=== PATIENT | male | born 1955 | race Caucasian/White ===

== ENCOUNTER → 2017-10-13 09:48 | Outpatient (CLI) | payer OTHER, SELFPAY ==
[2017-10-13 12:27] LABS: Anion Gap 5 (5-15); BUN 14 mg/dL (7-18); BUN/Creat Ratio 14.8 RATIO (10-20); Calcium,Total 8.3 mg/dL (8.5-10.1); Chloride 110 mmol/L (98-107); Cholesterol 201 mg/dL (200); Creatinine, Serum 0.95 mg/dL (0.70-1.30); EST Glomerular Filtration Rate 86 mL/min (>60); Est Glom Filt Rate - Afr Amer 104 mL/min (>60); Glucose 87 mg/dL (74-106); High Density Lipoprotein 44 mg/dL; PSA,Total - Annual Screen 0.91 ng/mL (0.00-4.00); Sodium Level 142 mmol/L (136-145); Triglycerides 60 mg/dL; Very Low Density Lipoprotein 12 mg/dL (5-40)
== END ==
PROVIDERS: Family Provider Family Medicine; PCP Family Medicine; Visit Provider Family Medicine
DX: E78.5 Hyperlipidemia, unspecified (principal); Z12.5 Encounter for screening for malignant neoplasm of prostate; Z13.1 Encounter for screening for diabetes mellitus
CPT/HCPCS: 36415; 80048; 80061; 84153; G0103

== ENCOUNTER → 2018-05-16 08:40 | Outpatient (CLI) | payer OTHER, SELFPAY ==
--- NOTE | 2018-05-16 08:42 | RAD_ITS ---
STUDY: X-RAY - PELVIS AND LEFT HIP REASON FOR EXAM: Male, 62 years old. Pain TECHNIQUE: Radiological exam, hip, unilateral, with pelvis when performed; 2 or 3 views. COMPARISON: None. FINDINGS: There is a non-specific bowel gas pattern. Normal visualized soft tissue structures. Normal bilateral iliac wings, sacroiliac joints and visualized sacrum. Normal bilateral superior and inferior pubic rami. Normal pubic symphysis. Normal bilateral ischial tuberosities. Normal visualized femoral head. Normal acetabulum. There is mild articular joint space narrowing of the hip. RAD/HIP, UNI W/ Pelvis 2-3 Views IMPRESSION: There is mild degenerative arthrosis of the LEFT hip. There are NO fractures or malalignments. Electronically Signed: Jeramie Gao MD at 2:28 EDT , Service support ,
== END ==
PROVIDERS: Family Provider Family Medicine; PCP Family Medicine; Referring Provider Physician Assistant; Visit Provider Physician Assistant
DX: M25.552 Pain in left hip (principal)
CPT/HCPCS: 73502

== ENCOUNTER 2018-06-09 07:23 | Outpatient (RCR) | payer OTHER, SELFPAY ==
--- NOTE | 2018-06-09 08:20 | HP.PTEVAL_ITS ---
Patient's Visit Information AYUSH LEE is a 62 year old M referred to Physical Therapy by JAYLEN Purcell with a diagnosis of L ITB syndrome. Date of Evaluation: 06/09/18 Physical Therapist: Dustin James DPT, OC - Visit Plan Frequency: 1x/Week Duration: 2-4 Weeks Plan: shown stretches today and will f/.u two weeks to ensure progress and D//C unless pain worsen and he is to call. - Subjective Subjective: Thought I was having a cramp last Tuesday and hard to walk the next day. Cramp was on top of R quad during tennis. Hard to walk due to pain the next morning and felt like it would pop out on him again. Almost back to normal. But has not played tennis. Has been taking it easy on the peloton which seemed to help. No tennis since. Just avoiding quick movements. Also taking animal chores slowly cleaning stalls and throwing hay. 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 Long trips have given him R posterior lateral leg pain. That happens on his commute now. Sleep is OK. Was seeing [facility] for L hip pain and clicking and is 70% with rest from the peloton. That pain was L lateral hip. - Pain R lateral knee Pain Intensity (Out of 10): 0 Pain Intensity Range: 1, 7 L hip pain Pain Intensity (Out of 10): 2 Pain Intensity Range: 2, 8 - Objective Pt ambulates adn performs steps normal today and without pain. No tenderness palpable in either LE. R knee has slight fat pad lump laterally whcih pt says has always been there. Full aROM knees and ankles and 5/5 strength. Hips are tight in musculature but good ROM except hip flexion whcih is 5 degrees actively B. quad and HS and ITB are mod tight, piriformis min tight. B. reflexes 2/3 patella adn achilles. Sensation LE WNL to gross light touch. - B FADDIR adn COLE, - B hip scour, - R patellar grind, bounce home. - Goals Goal 1:: I approp stretches t o minimize future problems Goal Time Frame: 2-4 Weeks Goal 2:: Pt feel 95% back to normal and doing all acitviites on farm and tennis. Goal Time Frame: 4-6 Weeks - Rehabilitation Potential Physical Therapy Diagnosis: L ITB syndrome , tight but improving pain. Rehabilitation Potential: Good - Anticipated Interventions Patient/Client Instruction: Educate patient on: Condition, Plan of Care For the Purpose of:: To decrease pain, To improve nutrient delivery to tissue, To improve ability of physical actions for home/community/work/leisure Therapeutic Exercise to Include: Flexibilty training For the Purpose of:: To decrease pain, To increase ROM Thank you for the opportunity to evaluate your patient. For Medicare and Medicare HMO plans, please review the plan of care and approve it. It will need to be FAXED BACK to us at [phone] for Medicare purposes. Please let me know if there are questions or concerns regarding this plan of care. Physician Signature: Date:
--- NOTE | 2018-08-18 13:43 | HP.PT.NRP ---
HP - Discharge Summary (1) - Patient Information AYUSH LEE was seen in my office for initial evaluation on 06/09/18. The following Plan of Care was established for this patient: Initial Frequency: 1x/Week Initial Duration: 2-4 Weeks - Anticipated Interventions Patient/Client Instruction: Educate patient on: Condition, Plan of Care For the Purpose of:: To decrease pain, To improve nutrient delivery to tissue, To improve ability of physical actions for home/community/work/leisure Therapeutic Exercise to Include: Flexibilty training For the Purpose of:: To decrease pain, To increase ROM This patient was last seen in our office 06/09/18. Pertinent comments regarding their Physical therapy will appear below: pt seen for one visit and POC established. Pt cancelled subsequent visits withotu rescheduling. AT this point, it has been over two months and will discontinue due to non attendance. At this point I will be discontinuing this patient from physical therapy. I would be happy to see this patient again in the future if found appropriate by the physician. Thank you! Dustin James, DPT, OCS, CSCS
== END 2018-06-09 19:00 | disposition home or self-care (01) ==
LOC: PT 07:23
PROVIDERS: Family Provider Family Medicine; PCP Family Medicine; Referring Provider Physician Assistant; Visit Provider Physician Assistant
DX: M76.32 Iliotibial band syndrome, left leg (principal)
CPT/HCPCS: 97110; 97161

== ENCOUNTER → 2018-07-17 08:16 | Outpatient (CLI) | payer OTHER, SELFPAY ==
--- NOTE | 2018-07-17 08:17 | RAD_ITS ---
STUDY: X-RAY - RIGHT KNEE REASON FOR EXAM: Pain. TECHNIQUE: 4 view(s) of the knee. COMPARISON: None. FINDINGS: There are postoperative changes of the distal femur and proximal tibia from anterior cruciate ligament reconstruction. Normal proximal tibiofibular articulation. Normal medial femorotibial compartment. There is a small surface osteophyte of the lateral femoral condyle on the tunnel view without joint space narrowing of the lateral femorotibial compartment. There are minimal marginal osteophytes of the patella without joint space narrowing of the patellofemoral articulation. There is a joint effusion. RAD/Knee 4 or More Views IMPRESSION: Joint effusion. Postoperative changes from anterior cruciate ligament reconstruction. Electronically Signed: Virgil Gordon MD at 11:55 EST Tel , Service support ,
== END ==
PROVIDERS: Family Provider Family Medicine; PCP Family Medicine; Referring Provider Orthopaedic Surgery; Visit Provider Orthopaedic Surgery
DX: M25.561 Pain in right knee (principal)
CPT/HCPCS: 73564

== ENCOUNTER → 2018-12-11 | Outpatient (CLI) | payer OTHER, SELFPAY ==
[2018-12-11 11:23] LABS: Anion Gap 7 (5-15); BUN 18 mg/dL (7-18); BUN/Creat Ratio 17.3 RATIO (10-20); Calcium,Total 8.7 mg/dL (8.5-10.1); Chloride 109 mmol/L (98-107); Cholesterol 200 mg/dL (200); Creatinine, Serum 1.04 mg/dL (0.70-1.30); EST Glomerular Filtration Rate 77 mL/min (>60); Est Glom Filt Rate - Afr Amer 93 mL/min (>60); Glucose 96 mg/dL (74-106); High Density Lipoprotein 46 mg/dL; PSA,Total - Annual Screen 1.11 ng/mL (0.00-4.00); Potassium 4.1 mmol/L (3.5-5.1); Sodium Level 143 mmol/L (136-145); Triglycerides 86 mg/dL; Very Low Density Lipoprotein 17 mg/dL (5-40)
== END | disposition home or self-care (01) ==
LOC: MFPLAB 08:53
PROVIDERS: Family Provider Family Medicine; PCP Family Medicine; Referring Provider Family Medicine; Visit Provider Family Medicine
DX: R73.01 Impaired fasting glucose (principal); Z12.5 Encounter for screening for malignant neoplasm of prostate
CPT/HCPCS: 36415; 80048; 80061; 84153; G0103

== ENCOUNTER → 2019-05-10 | Outpatient (CLI) | payer OTHER, SELFPAY ==
--- NOTE | 2019-05-10 08:50 | RAD_ITS ---
STUDY: X-RAY - PELVIS AND LEFT HIP REASON FOR EXAM: Male, 63 years old. Pain TECHNIQUE: 2 views of the pelvis and hip. COMPARISON: 05/16/2018 FINDINGS: There is a non-specific bowel gas pattern. Pelvic phlebolith on the left. Normal bilateral iliac wings, sacroiliac joints and visualized sacrum. Normal bilateral superior and inferior pubic rami. Normal pubic symphysis. Normal bilateral ischial tuberosities. Mild bilateral hip osteoarthritis. RAD/HIP, UNI W/ Pelvis 2-3 Views IMPRESSION: Mild bilateral hip osteoarthritis. This is unchanged. Electronically Signed: Kenyon Washington MD at 17:07 EDT Tel , Service support ,
== END | disposition home or self-care (01) ==
LOC: HPRAD 08:28
PROVIDERS: Family Provider Family Medicine; PCP Family Medicine; Referring Provider Family Medicine; Visit Provider Family Medicine
DX: M25.552 Pain in left hip (principal)
CPT/HCPCS: 73502

== ENCOUNTER → 2020-12-23 09:18 | Outpatient (CLI) | payer OTHER, SELFPAY ==
[2020-10-09 08:07] VITALS: BMI 29.0
[2020-12-23 10:42] LABS: Anion Gap 4 (5-15); BUN 15 mg/dL (7-18); BUN/Creat Ratio 17.5 RATIO (10-20); Calcium,Total 8.7 mg/dL (8.5-10.1); Chloride 110 mmol/L (98-107); Cholesterol 204 mg/dL (200); Creatinine, Serum 0.86 mg/dL (0.70-1.30); EST Glomerular Filtration Rate 96 mL/min (>60); Est Glom Filt Rate - Afr Amer 116 mL/min (>60); Glucose 92 mg/dL (74-106); High Density Lipoprotein 45 mg/dL; PSA,Total- Diagnostic 1.07 ng/mL (0.0-4.0); Sodium Level 141 mmol/L (136-145); Triglycerides 85 mg/dL; Very Low Density Lipoprotein 17 mg/dL (5-40)
== END ==
PROVIDERS: PCP Family Medicine; Referring Provider Family Medicine; Visit Provider Family Medicine
DX: Z13.220 Encounter for screening for lipoid disorders (principal); Z13.1 Encounter for screening for diabetes mellitus; Z12.5 Encounter for screening for malignant neoplasm of prostate
CPT/HCPCS: 36415; 80048; 80061; 84153

== ENCOUNTER 2023-04-18 16:27 | Emergency (ER) | payer OTHER, SELFPAY ==
[2023-04-18 16:28] VITALS: BP 150/84; PULSE 61; RESP 18; TEMP 36.3; O2SAT 100; BMI 30.4
--- NOTE | 2023-04-18 18:34 | CT_ITS ---
EXAM: CT brain without IV contrast. HISTORY: vision changes TECHNIQUE: No intravenous contrast. A radiation dose optimization technique was used for this scan. COMPARISON: None. LIMITATIONS: None. BRAIN: Mild low attenuation bilaterally within the deep white matter, likely secondary to chronic microvascular ischemia. VENTRICLES: No hydrocephalus. EXTRA-AXIAL SPACES: No acute hemorrhage. CALVARIUM/SKULL BASE: No acute fracture. FACE/SINUSES: Mucous retention cysts or polyps in the maxillary sinuses bilaterally. SOFT TISSUES: Normal. OTHER: None. CONCLUSION: No acute intracranial abnormality. EXAM: CT angiogram brain. HISTORY: vision changes TECHNIQUE: CTA Head and Neck W/ Contrast Injection (and W/O Contrast Images if performed). Multiplanar reconstructions and 3-D reformats were obtained. A radiation dose optimization technique was used for this scan. COMPARISON: None. LIMITATIONS: Mild motion artifact. DISTAL CAROTID ARTERIES: No significant stenosis. ANTERIOR CEREBRAL ARTERIES: No significant stenosis. MIDDLE CEREBRAL ARTERIES: No significant stenosis. POSTERIOR CEREBRAL ARTERIES: No significant stenosis. BASILAR ARTERY: No significant stenosis. OTHER: None. CONCLUSION: No aneurysm or significant stenosis. EXAM: CT angiogram neck. HISTORY: vision changes TECHNIQUE: CTA Head and Neck W/ Contrast Injection (and W/O Contrast Images if performed). Multiplanar reconstructions and 3-D reformats were obtained. A radiation dose optimization technique was used for this scan. COMPARISON: None. LIMITATIONS: None. CAROTID ARTERIES: No significant stenosis. VERTEBRAL ARTERIES: No significant stenosis. BONES/SOFT TISSUES: No acute fracture. OTHER: None. CONCLUSION: No significant stenosis. Electronically Signed: Roberto Pace MD at 20:23 EDT , CT/CTA Head AND Neck W/ Contrast IMPRESSION: undefined
--- NOTE | 2023-04-18 18:35 | EKG12_ITS ---
Test Reason : DYSRHYTHMIA Blood Pressure : / mmHG Vent. Rate : 054 BPM Atrial Rate : 054 BPM P-R Int : 196 ms QRS Dur : 090 ms QT Int : 378 ms P-R-T Axes : 032 008 006 degrees QTc Int : 358 ms Sinus bradycardia Otherwise normal ECG Confirmed by ROSA COCHRAN, KAREN ([id number]), television news video editor BERTA WILSON ([id number]) on 04/21/2023 1:58:21 PM Referred By: Confirmed By:KAREN LEE MD
--- NOTE | 2023-04-18 18:36 | EX.ED.VIS.EY ---
HPI History of Present Illness Chief Complaint: Eye Problem Informant: patient Narrative Narrative: Patient presents from ophthalmology office due to concern for stroke. Patient was being seen for amaurosis fugax. About 4-6 months ago he had to episodes of wavy vision in the lower portion of his right eye only. About 2 weeks ago he had an episode of completely opaque vision blockage in the lower portion of his right eye that lasted just a few seconds. He was being seen today for follow-up. Apparently his sed rate and CRP have been negative in the past. Due to concern for stroke he was sent to the emergency room for work-up. [facility] Medical History (Updated 04/18/23 @ 21:[address] Bianca Carty MD) High cholesterol Home Medications rosuvastatin 10 mg tablet (Crestor) 10 mg PO DAILY 04/18/23 [History Last Taken Unknown] Allergy/AdvReac Type Severity Reaction Status Date / Time No Known Allergies Allergy Verified 04/18/23 16:30 Surgical History H/O knee surgery History of total hip replacement Social History household members: spouse housing: house current occupational status: employed Smoking Status: Never smoker alcohol intake: current alcohol intake frequency: a few times a week what type of physical activity do you participate in: bicycling do you feel safe at home: Yes ROS ROS ED Constitutional Constitutional ED: Denies chills or fever(s) Eyes Eyes: Reports change in vision; Denies discharge from eye(s) ENT ENT ED: Denies discharge from eye(s), rhinorrhea or sore throat Cardiovascular Cardiovascular: Denies chest pain or palpitations Respiratory/Chest Respiratory/Chest: Denies cough or dyspnea Gastrointestinal Gastrointestinal: Denies abdominal pain, nausea or vomiting Genitourinary Genitourinary ED: Denies dysuria Musculoskeletal Musculoskeletal: Denies back pain or extremity pain Integumentary Denies Abrasions or rash Neurologic Neurologic: Denies headache(s) or weakness Psychiatric Psychiatric: Denies anxiety or depression Allergic/Immunologic Allergic/Immunologic ED: Denies lip swelling or urticaria EXAM Physical Exam Const Vital Signs: 04/18/23 16:28 Temperature 97.4 F L Temperature Source Temporal Pulse Rate 61 Respiratory Rate 18 Blood Pressure 150/84 H Blood Pressure Mean 106 Pulse Ox 100 Oxygen Delivery Method Room Air Positive well nourished and well developed General Appearance ED: well developed HEENT Reports normocephalic and head/scalp atraumatic Eyes PERRL and EOMs intact bilaterally Neck supple Chest Wall inspection of chest normal and palpation of chest normal Resp normal respiratory effort and clear to auscultation bilaterally Cardio regular rate and regular rhythm GI normal to inspection, nondistended, normoactive bowel sounds Palpation: soft Back/Spine no CVA tenderness Extremity normal to inspection Neuro oriented x3 and no sensory deficits noted Neuro Narrative: NIH equals 0 Sensorium / Orientation: alert Motor Exam: strength 5/5 throughout Psych mental status grossly normal MDM MDM MDM Narrative Medical decision making narrative: Patient placed on fudger. EKG obtained to evaluate for cardiac arrhythmia/ischemia. Chest x-ray obtained to evaluate for acute lung pathology, cardiac size, or mediastinal abnormality. Labwork obtained to evaluate for leukocytosis, anemia, and electrolyte derangement. CTA of the head and neck obtained to evaluate for stroke. Lab Data Attestation: I reviewed the patient's lab results. Labs: Laboratory Results 04/18/23 18:45 WBC 5.0 RBC 4.52 L Hgb 14.0 Hct 43.1 MCV 95.4 H MCH 31.0 MCHC 32.5 RDW Std Deviation 43.4 RDW Coeff of Alyssia 12.4 Plt Count 151 MPV 9.0 Immature Gran % (Auto) 0.400 Neut % (Auto) 56.6 Lymph % (Auto) 31.7 Shackelford % (Auto) 7.5 Eos % (Auto) 3.0 Baso % (Auto) 0.8 Absolute Neuts (auto) 2.8 Absolute Lymphs (auto) 1.57 Nucleated RBC % 0 ESR 3 PT 12.3 INR 0.9 APTT 24.2 Sodium 141 Potassium 3.9 Chloride 107 Carbon Dioxide 27.0 Anion Gap 7 BUN 13 Creatinine 0.95 Estim Creat Clear Calc 87.61 Est GFR (MDRD) Af Amer 102 Est GFR (MDRD) Non-Af 85 BUN/Creatinine Ratio 13.7 Glucose 93 Calcium 8.9 C-React Prot Ext Range < 2.90 Radiography Chest X-Ray - ED: 1 View, Read by ED Physician, Normal, Heart, Lungs and Mediastinum Diagnostic Testing: Radiology Impression Head/Neck CTA 04/18/23 18:34 IMPRESSION: undefined Chest X-Ray 04/18/23 18:40 IMPRESSION: No demonstrated acute cardiopulmonary process. Electronically Signed: Mer Dlay MD at 19:07 EDT , EKG Initial EKG: Attestation: I personally reviewed and interpreted this EKG as follows: Interpretation: Sinus Bradycardia (Sinus bradycardia 54 bpm. No acute ischemia.) Treatment and Re-Evaluation Narrative: CBC was normal white count at 5.0 with a hemoglobin of 14.0. Sed rate is normal at 3 and CRP is less than 2.9. Chemistry studies unremarkable. Portable chest x-ray per my interpretation reveals no acute findings. Noncontrast head CT reveals no acute intracranial abnormality. CTA of the head and neck reveals no evidence of stenosis. EKG is sinus bradycardia with no acute ischemia. Per previous discussion with ophthalmology, patient is to be admitted for remainder of stroke work-up. I will discuss with hospitalist. Addendum: After speaking with the hospitalist, he feels the patient can be worked up as an outpatient given the patient has not had any symptoms in 2 weeks. I spoke with Dr Whitt, length control tester for Dr Joseph. She will notify Dr Joseph to get the appropriate tests ordered. Patient encouraged to return immediately if he develops any further symptoms. Discharge Plan Triage Chief Complaint: Eye Problem ED Provider: Bianca Carty Dx/Rx/DC Orders Clinical Impression: Amaurosis fugax of right eye Instructions: Symptoms of Stroke, What Is a TIA? Prescriptions: No Action rosuvastatin [Crestor] 10 mg tablet 10 mg PO DAILY Primary Care Provider: Zoraida Joseph Referrals: Zoraida Joseph MD [Primary Care Provider] - As soon as possible Activity Restrictions/Additional Instructions: As discussed, I spoke with Dr. Whitt, on-call for Dr. Joseph. She will notify Dr. Joseph in the morning that you still need outpatient work-up including echocardiogram and MRI of the brain. If you have any further symptoms please return to the emergency room immediately. Disposition Disposition: Home, Self Care
--- NOTE | 2023-04-18 18:40 | RAD_ITS ---
STUDY: X-RAY CHEST REASON FOR EXAM: Male, 67 years old. CVA TECHNIQUE: Single AP portable view of the chest. COMPARISON: None. FINDINGS: The lungs are clear and expanded. There is no demonstrated pleural abnormality. Normal size heart. Normal mediastinum and estephania. Normal visualized pulmonary arteries. Normal visualized aortic arch and descending thoracic aorta. Normal visualized thoracic spine. Visualized degenerative change of the coracoclavicular ligament and acromial clavicular joint compatible with. There is no demonstrated abnormality of the visualized soft tissue structures of the upper abdomen. RAD/Chest 1 View (Portable) IMPRESSION: No demonstrated acute cardiopulmonary process. Electronically Signed: Mer Daly MD at 19:07 EDT ,
[2023-04-18 18:53] LABS: Absolute Lymphocyte Count 1.57 X10^3/uL (0.83-4.51); Absolute Neutrophil Count 2.8 X10^3/uL (2.0-7.7); Basophil# 0.04 X10^3/uL; Basophil% 0.8 % (0-1); Eosinophil# 0.15 X10^3/uL; Hematocrit 43.1 % (40-54); Lymphocyte # 1.57 X10^3/ul (0.83-4.51); Lymphocyte % 31.7 % (19-41); Mean Corp Hgb Conc 32.5 g/dL (32-36); Mean Corpuscular Volume 95.4 fL (80-94); Monocyte# 0.37 X10^3/uL; Monocyte% 7.5 % (0-10); NRBC Flagged by Analyzer 0 % (0-5); Neutrophil % 56.6 % (47-70); Platelet Count 151 K/mm3 (150-450); RBC Distribution Width CV 12.4 % (11.6-14.6); RBC Distribution Width SD 43.4 fl (35.1-43.9); Red Blood Count 4.52 M/mm3 (4.6-6.2)
[2023-04-18 19:06] LABS: International Normalized Ratio 0.9; Prothrombin Time (Protime)PT. 12.3 SECONDS (11.7-14.9)
[2023-04-18 19:07] LABS: Erythrocyte Sedimentation Rate 3 mm/hr (0-20); Partial Thromboplast Time 24.2 Seconds (24.1-36.2)
[2023-04-18 19:30] LABS: Anion Gap 7 (5-15); BUN 13 mg/dL (7-18); BUN/Creat Ratio 13.7 RATIO (10-20); CRP < 2.90 mg/L (0.0-3.0); Calcium,Total 8.9 mg/dL (8.5-10.1); Chloride 107 mmol/L (98-107); Creatinine, Serum 0.95 mg/dL (0.70-1.30); EST Glomerular Filtration Rate 85 mL/min (>60); Est Glom Filt Rate - Afr Amer 102 mL/min (>60); Estimated Creatinine Clearance 87.61 ml/min; Glucose 93 mg/dL (74-106); Potassium 3.9 mmol/L (3.5-5.1); Sodium Level 141 mmol/L (136-145)
== END 2023-04-18 22:39 | disposition home or self-care (01) ==
PROVIDERS: Emergency Provider Emergency Medicine; PCP Internal Medicine; Visit Provider Emergency Medicine
DX: G45.3 Amaurosis fugax (principal); E78.00 Pure hypercholesterolemia, unspecified; Z79.899 Other long term (current) drug therapy
CPT/HCPCS: 70496; 70498; 71045; 80048; 85025; 85610; 85652; 85730; 86140; 93005; 99284; Q9967

== ENCOUNTER → 2023-05-03 | Outpatient (CLI) | payer OTHER, SELFPAY ==
--- NOTE | 2023-05-03 13:44 | ECHOD_ITS ---
Reason For Study: Amaurosis Fugax Procedure This was a 2D Doppler, Color Flow transthoracic echocardiogram. Exam performed in department. Left Ventricle Normal LV size. Left ventricular systolic function is normal. The estimated ejection fraction is 60 %. No evidence for diastolic dysfunction. Right Ventricle Normal RV size. Normal systolic function. Atria The left and right atria are normal. Bubble contrast study negative for right to left interatrial shunt. Mitral Valve The mitral valve is structurally normal. No prolapse or stenosis seen. Trivial mitral valve insufficiency. Tricuspid Valve Normal tricuspid valve. Trivial tricuspid valve insufficiency. Right ventricular systolic pressure estimated to be 22 mmHg. Aortic Valve Trisinus/trileaflet aortic valve. Mild diffuse aortic valve thickening. Pulmonic Valve Normal pulmonic valve. Trivial pulmonic valve insufficiency. Great Vessels Normal aortic root. Pericardium/Pleural No pericardial effusion. Medication 22 gauge I.V. with prn adaptor inserted into right arm. Performed a rapid injection of agitated mix of 9 cc saline and 1cc air to assess for atrial septal defect. MMode/2D Measurements & Calculations LVIDd: 5.1 cm IVSd: 0.80 cm Ao root diam: 3.9 cm LVIDs: 3.1 cm LVPWd: 0.90 cm LA dimension: 3.8 cm RVDd: 4.2 cm FS: 39.2 % LAV(MOD-bp): 59.3 ml LVAd ap4: 37.2 cm2 SV(MOD-sp4): 73.9 ml LAV(MOD-bp) Indexed: 26.5 ml/m2 LVLd ap4: 9.5 cm LAV(MOD-sp2): 46.4 ml EDV(MOD-sp4): 118.0 ml LAV(MOD-sp4): 58.5 ml EDV(sp4-el): 123.1 ml LVAs ap4: 20.7 cm2 LVLs ap4: 7.6 cm ESV(MOD-sp4): 44.1 ml ESV(sp4-el): 47.6 ml EF(MOD-sp4): 62.6 % EF(sp4-el): 61.3 % SV(sp4-el): 75.4 ml LA A4 area: 21.7 cm2 RA A4 area: 19.0 cm2 TAPSE: 1.6 cm Time Measurements MV dec time: 0.20 sec Doppler Measurements & Calculations MV E max loki: 73.0 cm/sec Lat Peak E' Loki: 17.3 cm/sec Med Peak E' Loki: 9.7 cm/sec MV A max loki: 56.7 cm/sec E/E' lat: 4.2 E/E' med: 7.5 MV E/A: 1.3 MV V2 max: 81.0 cm/sec MV P1/2t max loki: 81.6 cm/sec Ao V2 max: 137.7 cm/sec MV max P.6 mmHg MV P1/2t: 62.2 msec Ao max P.6 mmHg MV V2 mean: 36.0 cm/sec Ao V2 mean: 93.0 cm/sec MV mean P.63 mmHg MV dec slope: 384.2 cm/sec2 Ao mean P.1 mmHg MV V2 VTI: 29.0 cm MVA(P1/2t): 3.5 cm2 Ao V2 VTI: 33.8 cm AV (velocity ratio): 0.76 LV V1 max: 106.7 cm/sec PA V2 max: 73.5 cm/sec TR max loki: 217.5 cm/sec LV V1 max P.6 mmHg TR max P.9 mmHg LV V1 mean P.6 mmHg LV V1 mean: 76.1 cm/sec LV V1 VTI: 25.8 cm ECHO/Echo Complete Interpretation Summary The estimated ejection fraction is 60 %. No evidence for diastolic dysfunction. Bubble contrast study negative for right to left interatrial shunt. Mild diffuse aortic valve thickening. Ordering Physician: Zoraida Joseph Referring Physician: Desmond Peres Performed By: Baudilio Juarez RCS
== END | disposition home or self-care (01) ==
PROVIDERS: PCP Internal Medicine; Referring Provider Ophthalmology; Visit Provider Ophthalmology
DX: G45.3 Amaurosis fugax (principal)
CPT/HCPCS: 93306; A4216

== ENCOUNTER → 2023-05-05 | Outpatient (CLI) | payer OTHER, SELFPAY | END | disposition home or self-care (01) | LOC: PSN 09:34 | PROVIDERS: PCP Internal Medicine; Referring Provider Internal Medicine; Visit Provider Internal Medicine | DX: G45.9 Transient cerebral ischemic attack, unspecified (principal) | CPT/HCPCS: 93225; 93226 ==